=== PATIENT | male | born 1960 | race Two or more races ===

== ENCOUNTER 2024-05-17 11:30 | Inpatient (IN) | payer OTHER ==
[~2024-05-17] VITALS: Ht 213.4 cm; Wt 73.9 kg
[2024-05-17] MEDS ORDERED: TOPROL XL50 M1 PO (12:33)
[2024-05-17] MEDS ORDERED: AMLODIPINE-OLM1 EAC2 (12:34)
[2024-05-17] MEDS ORDERED: ZESTRIL20 MG PO (12:34)
[2024-05-24] MEDS ORDERED: BUPIVACAINE HCL/MPF 0.5% 30ML VIAL ONE (14:04)
[2024-05-24] MEDS ORDERED: METRONIDAZOLE/SODIUM CHLORIDE 500 MG/100 ML PIGGYBACK IV ONE (14:05)
[2024-05-24] MEDS ORDERED: LIDOCAINE HCL 1%/EPINEPHRINE 20ML VIAL IJ ONE (14:05)
[2024-05-24] MEDS ORDERED: CEFTRIAXONE SODIUM 2,000 MG VIAL ONE (14:05)
[2024-05-24] MEDS ORDERED: ENALAPRILAT DIHYDRATE 1.25 MG/ML VIAL IV PRN (14:45)
[2024-05-24] MEDS ORDERED: ONDANSETRON HCL 2 MG/ML VIAL IV PRN (16:15)
[2024-05-24] MEDS ORDERED: DEXTROSE 50 % IN WATER 0.5 G/ML DISP.SYRIN IV PRN (16:15)
[2024-05-24] MEDS ORDERED: OxyCODONE HCL 5 MG TABLET (ROXICODONE) PO PRN (16:15)
[2024-05-24] MEDS ORDERED: MORPHINE SULFATE 4 MG/ML CARTRIDGE IV PRN (16:15)
[2024-05-24] MEDS ORDERED: RINGERS SOLUTION,LACTATED 1,000 ML IV SCH (16:15)
[2024-05-24] MEDS ORDERED: GABAPENTIN 300 MG CAPSULE PO SCH (17:00)
[2024-05-24] MEDS ORDERED: HYOSCYAMINE SULFATE 0.125 MG TAB.SUBL SL SCH (17:00)
[2024-05-24] MEDS ORDERED: POLYETHYLENE GLYCOL 3350 17 GM BLIST.PACK PO SCH (17:00)
[2024-05-24] MEDS ORDERED: SIMETHICONE 125 MG CAPSULE PO SCH (17:00)
[2024-05-24] MEDS ORDERED: CELECOXIB 200 MG CAPSULE PO SCH (17:00)
[2024-05-24] MEDS ORDERED: METOCLOPRAMIDE HCL 5 MG/ML VIAL IV SCH (17:00)
[2024-05-24] MEDS ORDERED: MORPHINE SULFATE 4 MG/ML VIAL IV ONE ×2 (17:40→18:40)
[2024-05-24 18:50] LABS: HEMATOCRIT 41.2 % (39.0-48.0); HEMOGLOBIN 14.1 g/dL (13-16.00); MEAN CELL VOLUME 90.7 fL (80.0-100.00); MEAN CORPUSCULAR HEMOGLOBIN 31.1 pg (27.00-32.0); MEAN CORPUSCULAR HGB CONC 34.3 g/dl (32.0-36.0); PLATELET COUNT 185 K/uL (150-450); RED BLOOD COUNT 4.54 M/uL (4.00-6.00)
[2024-05-24] MEDS ORDERED: ACETAMINOPHEN 500 MG GEL..CAP PO SCH (20:00)
[2024-05-24] MEDS ORDERED: FAMOTIDINE/PF 20 MG/2 ML VIAL IV PUSH SCH (21:00)
[2024-05-24] MEDS ORDERED: FAMOTIDINE/PF 20 MG/2 ML VIAL ONE (21:30)
[2024-05-24 22:14] VITALS: BP 115/60; O2SAT 98
[2024-05-25 01:28] VITALS: BP 112/58; O2SAT 97
[2024-05-25 07:06] LABS: HEMATOCRIT 41.9 % (39.0-48.0); HEMOGLOBIN 14.3 g/dL (13-16.00); MEAN CELL VOLUME 90.5 fL (80.0-100.00); MEAN CORPUSCULAR HEMOGLOBIN 30.8 pg (27.00-32.0); MEAN CORPUSCULAR HGB CONC 34.1 g/dl (32.0-36.0); PLATELET COUNT 198 K/uL (150-450); RED BLOOD COUNT 4.64 M/uL (4.00-6.00); RED CELL DISTRIBUTION WIDTH 14.4 % (11.5-14.5)
[2024-05-25 07:54] LABS: ALBUMIN 3.1 gm/dL (3.4-5.0); CALCIUM 8.4 mg/dL (8.5-10.1); CREATININE SERUM 0.61 mg/dL (0.70-1.30); GFR 133.08; MAGNESIUM 2.1 mg/dL (1.8-2.4); PHOSPHOROUS 3.8 mg/dL (2.5-4.9); POTASSIUM 4.63 mEq/L (3.5-5.1)
[2024-05-25 08:00] VITALS: BP 130/62; O2SAT 100
[2024-05-25] MEDS ORDERED: LACTOBACILLUS ACIDOPHILUS 1 CAP CAP PO SCH (09:00)
[2024-05-25] MEDS ORDERED: AMLODIPINE BESYLATE 2.5 MG TABLET PO SCH (09:00)
[2024-05-25] MEDS ORDERED: LISINOPRIL 10 MG TABLET PO SCH (09:00)
[2024-05-25] MEDS ORDERED: METOPROLOL SUCCINATE 50 MG TAB.SR.24H PO SCH (09:00)
[2024-05-25] MEDS ORDERED: LACTULOSE 20 G/30 ML BLIST.PACK PO SCH (09:00)
[2024-05-25 17:00] VITALS: BP 117/66; O2SAT 98
[2024-05-25] MEDS ORDERED: ENOXAPARIN SODIUM 40 MG/0.4 ML SYRINGE SUBCUTANEO SCH (17:00)
[2024-05-26 01:25] VITALS: BP 117/70; O2SAT 100
[2024-05-26] MEDS ORDERED: ENOXAPARIN SODIUM 40 MG/0.4 ML SYRINGE SUBCUTANEO SCH (09:00)
[2024-05-26 11:03] VITALS: BP 138/70; O2SAT 100
[2024-05-26 19:02] VITALS: BP 130/77; O2SAT 100
== END 2024-05-26 19:27 | disposition home or self-care (01) | DRG 331 ==
LOC: O/R 05-24 07:40 → SURH 05-24 07:40
PROVIDERS: ADMIT Colon & Rectal Surgery; ATTEND Colon & Rectal Surgery
PROC: 07BB4ZZ Excision of Mesenteric Lymphatic, Percutaneous Endoscopic Approach (ICD-10-PCS; 2024-05-24)
PROC: 0DTF4ZZ Resection of Right Large Intestine, Percutaneous Endoscopic Approach (ICD-10-PCS; principal; 2024-05-24 16:45)
DX: D12.2 Benign neoplasm of ascending colon (principal); R59.0 Localized enlarged lymph nodes; Z86.0100 Personal history of colon polyps, unspecified